=== PATIENT | male | born 1980 | race African-American/Black ===

== ENCOUNTER 2016-09-25 03:10 | Emergency (ER) | payer SELFPAY ==
[~2016-09-25] VITALS: Ht 172.7 cm; Wt 120.2 kg
[2016-09-25 03:10] VITALS: BP 123/76
[2016-09-25] MEDS ORDERED: HYDR-971 PO ×2 (03:49→03:58)
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
== END 2016-09-25 04:05 | disposition home or self-care (01) ==
LOC: ER 03:10
DX: S62.301A Unspecified fracture of second metacarpal bone, left hand, initial encounter for closed fracture (principal); Y04.0XXA Assault by unarmed brawl or fight, initial encounter; Y93.89 Activity, other specified; Y99.8 Other external cause status; Y92.89 Other specified places as the place of occurrence of the external cause
CPT/HCPCS: 29125; 99283-25

== ENCOUNTER 2017-03-30 06:46 | Emergency (ER) | payer OTHER ==
[~2017-03-30] VITALS: Ht 172.7 cm; Wt 120.2 kg
[~2017-03-30 06:46] MED LIST: HYDR-971 PO
[2017-03-30] MEDS ORDERED: IV NORMAL SALINE 1,000ML 1,000 ML IV SCH (07:07)
--- NOTE | 2017-03-30 07:29 | PHYS DOC ---
General Chief Complaint: ABDOMINAL PAIN Stated Complaint: N/V BODY ACHES Time Seen by MD: 06:54 Source: patient Exam Limitations: no limitations Problems: History of Present Illness Initial Comments Patient is a 36-year-old male who comes to the ED complaining of nausea vomiting and myalgias. Patient states for the past 4 days he's had epigastric and generalized abdominal discomfort. He had a loose watery stool yesterday described as diarrhea but states he generally struggles with some constipation. He also had one episode of emesis earlier today no blood in stools or emesis. Abdominal discomfort primarily epigastric but he does say sore all over. ED vitals: 97.7, 66, 16, 135/83, 95% room air Timing/Duration: other (3 days) Modifying Factors: worse with eating, worse with movement, improves with rest Associated Symptoms: nausea/vomiting, other Allergies: Coded Allergies: No Known Drug Allergies (Unverified , 01/23/13) Past Medical History Medical History: no pertinent history Surgical History: noncontributory Social History Smoker: non-smoker, cigarettes Alcohol: none Drugs: none Review of Systems Constitutional: denies chills, denies diaphoresis, denies fever, denies malaise Respiratory: denies cough, denies shortness of breath Cardiovascular: denies chest pain Gastrointestinal: abdominal pain, diarrhea, nausea, vomiting Musculoskeletal: denies back pain, denies joint swelling, denies neck pain Psychiatric/Neurological: denies headache, denies numbness, denies paresthesia Hematologic/Lymphatic: denies blood clots, denies easy bleeding, denies easy bruising Physical Exam General Appearance: WD/WN, no apparent distress Eyes: bilateral eye normal inspection, bilateral eye PERRL, bilateral eye EOMI Ear, Nose, Throat: hearing grossly normal, normal ENT inspection, normal pharynx Neck: non-tender, full range of motion, supple Respiratory: normal breath sounds, no respiratory distress Cardiovascular: normal peripheral pulses, regular rate, rhythm Gastrointestinal: soft (nondistended, negative McBurney there is some epigastric tenderness to palpation as well as exquisitely tender Pedersen sign with guarding no rebound or masses palpated bowel sounds are somewhat diminished ) Rectal: deferred Back: no CVA tenderness, no vertebral tenderness Extremities: normal range of motion, non-tender, normal inspection 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 Acute abdominal series: No acute cardiopulmonary process, nonspecific nonobstructive bowel gas pattern interpreted by me. 0835: I rechecked the patient is pain is resolved with fentanyl nausea is better with Zofran ODT. He continues with exquisite right upper quadrant tenderness and an ultrasound has been ordered his lab evaluation has been unremarkable PATIENT: SVETLANA RICHEY ACCOUNT: [id number] : 1980 LOCATION: ER AGE: 36 SEX: M EXAM STATUS: REG ER ORD. PHYSICIAN: SYDNEY HOLM DO REASON: n/v PROCEDURE: ACUTE ABDOMEN SERIES Acute abdomen series with chest, 03/30/2017: History: Vomiting Gas is present in large and small bowel in a nonspecific pattern. There is a moderate amount of stool in the right colon. No free air seen in the abdomen. There is no evidence of organomegaly. A lower pelvic calcifications on the right is probably a phlebolith. The heart size is normal. The lungs are clear. There is no evidence of pleural fluid. IMPRESSION: No acute abdominal abnormality is detected. DICTATED AND SIGNED BY: OREN GRECO MD DATE: 03/30/17 0837 CC: ISA BROWN MD; SYDNEY HOLM DO ~ PATIENT: SVETLANA RICHEY ACCOUNT: [id number] : 1980 LOCATION: ER AGE: 36 SEX: M EXAM STATUS: REG ER ORD. PHYSICIAN: SYDNEY HOLM DO REASON: epigastric/RUQ pain, +pedersen PROCEDURE: ABDOMEN COMPLETE Examination: Ultrasound abdomen complete HISTORY: History of epigastric pain, right upper quadrant pain COMPARISON: None available FINDINGS: No evidence of gallstones identified. The liver measures 14.5 cm. The echogenicity liver grossly appears unremarkable. The right kidney measures 11.3 cm in length. The left kidney measures 13 cm in length. The pancreas is not well-visualized due to bowel gas. Spleen measures 10.5 cm. The visualized aorta, IVC appear patent. The common bile duct measures 2.8 mm. IMPRESSION: Unremarkable visualized exam. Electronically signed by: Joe Walls MD (03/30/2017 10:25 AM) [facility] DICTATED AND SIGNED BY: JOE WALLS MD DATE: 03/30/17 1024 CC: ISA BROWN MD; SYDNEY HOLM DO ~ Labs unremarkable influenza negative. Urinalysis positive for blood and given the waxing and waning of the patient's symptoms will check CT to rule out stone. PATIENT: SVETLANA RICHEY ACCOUNT: [id number] : 1980 LOCATION: ER AGE: 36 SEX: M EXAM STATUS: REG ER ORD. PHYSICIAN: SYDNEY HOLM DO REASON: flank pain b/l, hematuria PROCEDURE: CT ABDOMEN PELVIS WO CONTRAST PQRS Compliance Statement: One or more of the following individualized dose reduction techniques were utilized for this examination: 1. Automated exposure control 2. Adjustment of the mA and/or kV according to patient size 3. Use of iterative reconstruction technique CT ABDOMEN PELVIS WO CONTRAST Clinical Indication: flank pain, hematuria for 4 days Comparison: None. Technique: Helical CT imaging of the abdomen and pelvis is performed without IV or oral contrast. Findings: Evaluation of solid organs and bowel is limited without oral and IV contrast, decreasing sensitivity for detection of pathology. Lung bases are clear. Cardiac size normal. Liver, gallbladder, spleen, pancreas, adrenal glands, and abdominal aorta caliber are normal. There is at least one punctate nonobstructing left renal calculus. There is no hydronephrosis or perinephric stranding. No ureteral calculus. Stomach unremarkable. Small fat-containing umbilical hernia. No dilated small bowel. The appendix is normal. No colon wall thickening. No abdominal adenopathy or free fluid. Urinary bladder is normal. Prostate size normal. No pelvic free fluid. Transitional lumbosacral anatomy. IMPRESSION: 1. No acute abdominal or pelvic abnormality. No obstructive uropathy. 2. There is at least one punctate nonobstructing left renal calculus. Electronically signed by: Vimal Holly MD (03/30/2017 11:10 AM) [id number] DICTATED AND SIGNED BY: VIMAL HOLLY MD DATE: 03/30/17 1101 CC: ISA BROWN MD; SYDNEY HOLM DO ~ I discussed findings with the patient and his significant other extensively. No acute emergent process is noted. The patient does remain with intermittent discomfort and nausea no vomiting while here in the emergency department. I discussed dietary modifications, oral hydration and work restriction. I discussed [id number] prescription medications. Discussed signs and symptoms to monitor as well as indications for urgent return to the department. There questions were answered is advised to stop smoking expressed agreement and understanding with the treatment plan. Departure Time of Disposition: 11:15 Disposition: 01 HOME, SELF-CARE Diagnosis: gastroenteritis Condition: GOOD Patient Instructions: Abdominal Pain (Nonspecific), Viral Gastroenteritis, Easy -to-Read Additional Instructions: As discussed no acute emergent process noted after extensive evaluation in the emergency department. Off work today. Clear liquids today, advance diet slowly tomorrow as tolerated. No driving or operating machinery while sedated with medications. Stop smoking, seek medical assistance if necessary. Impression: Zofran ODT, dicyclomine Follow-up with your doctor in 3-5 days if no improvement. Return to ED with new or changing symptoms. Departure Disposition: HOME, SELF-CARE Diagnosis: gastroenteritis Condition: GOOD Patient Instructions: Abdominal Pain (Nonspecific), Viral Gastroenteritis, Easy -to-Read Additional Instructions: As discussed no acute emergent process noted after extensive evaluation in the emergency department. Off work today. Clear liquids today, advance diet slowly tomorrow as tolerated. No driving or operating machinery while sedated with medications. Stop smoking, seek medical assistance if necessary. Impression: Zofran ODT, dicyclomine Follow-up with your doctor in 3-5 days if no improvement. Return to ED with new or changing symptoms. SYDNEY HOLM DO Mar 30, 2017 07:29
[2017-03-30 07:35] LABS: BASO % 0 % (0-3); EOS # 0.2 x10^3/uL (0.0-0.7); EOS % 2 % (0-3); HEMATOCRIT 44.8 % (39.0-53.0); HEMOGLOBIN 15.4 g/dL (13.0-17.5); LYMPH # 1.9 x10^3/uL (1.0-4.8); LYMPH % 16 % (24-48); MEAN CORPUSCULAR HEMOGLOBIN 30 pg (25-35); MEAN CORPUSCULAR HGB CONC 34 g/dL (31-37); MEAN CORPUSCULAR VOLUME 87 fL (79-100); MONO % 9 % (0-9); NEUT # 8.6 x10^3uL (1.8-7.7); NEUT % 73 % (31-73); PLATELET COUNT 273 x10^3/uL (140-400); RED BLOOD COUNT 5.13 x10^6/uL (4.30-5.70); RED CELL DISTRIBUTION WIDTH 13.2 % (11.5-14.5); WHITE BLOOD COUNT 11.8 x10^3/uL (4.0-11.0)
[2017-03-30] MEDS ORDERED: KETOROLAC 30 MG/ML VIAL. IV ONE (07:45)
[2017-03-30] MEDS ORDERED: ONDANSETRON PF 4 MG/2 ML VIAL. IV ONE (07:45)
[2017-03-30 07:48] LABS: ALBUMIN 3.6 g/dL (3.4-5.0); ALBUMIN/GLOBULIN RATIO 0.9 (1.0-1.7); CALCIUM 8.9 mg/dL (8.5-10.1); GFR 102.9; POTASSIUM 3.9 mmol/L (3.5-5.1); TOTAL BILIRUBIN 0.4 mg/dL (0.2-1.0); TOTAL PROTEIN 7.4 g/dL (6.4-8.2)
[2017-03-30 07:50] LABS: INFLUENZA A PATIENT NEGATIVE (NEGATIVE); INFLUENZA B PATIENT NEGATIVE (NEGATIVE)
[2017-03-30 07:55] LABS: BACTERIA,URINE 0 /HPF (0-FEW); BILIRUBIN,URINE NEG (NEG); CLARITY,URINE HAZY; COLOR,URINE AMBER; GLUCOSE,URINE NEG (NEG); NITRITE,URINE NEG (NEG); SQUAMOUS EPITHELIAL CELL,UR OCC /LPF; UROBILINOGEN,URINE 0.2 mg/dL (0.2 mg/dL); WBC,URINE 0 /HPF (0-4)
--- NOTE | 2017-03-30 08:40 | RAD ---
Acute abdomen series with chest, 03/30/2017: History: Vomiting Gas is present in large and small bowel in a nonspecific pattern. There is a moderate amount of stool in the right colon. No free air seen in the abdomen. There is no evidence of organomegaly. A lower pelvic calcifications on the right is probably a phlebolith. The heart size is normal. The lungs are clear. There is no evidence of pleural fluid. IMPRESSION: No acute abdominal abnormality is detected.
[2017-03-30 10:11] VITALS: BP 129/96
--- NOTE | 2017-03-30 10:29 | RAD ---
Examination: Ultrasound abdomen complete HISTORY: History of epigastric pain, right upper quadrant pain COMPARISON: None available FINDINGS: No evidence of gallstones identified. The liver measures 14.5 cm. The echogenicity liver grossly appears unremarkable. The right kidney measures 11.3 cm in length. The left kidney measures 13 cm in length. The pancreas is not well-visualized due to bowel gas. Spleen measures 10.5 cm. The visualized aorta, IVC appear patent. The common bile duct measures 2.8 mm. IMPRESSION: Unremarkable visualized exam. Electronically signed by: Joe Walls MD (03/30/2017 10:25 AM) [facility]
--- NOTE | 2017-03-30 11:13 | RAD ---
PQRS Compliance Statement: One or more of the following individualized dose reduction techniques were utilized for this examination: 1. Automated exposure control 2. Adjustment of the mA and/or kV according to patient size 3. Use of iterative reconstruction technique CT ABDOMEN PELVIS WO CONTRAST Clinical Indication: flank pain, hematuria for 4 days Comparison: None. Technique: Helical CT imaging of the abdomen and pelvis is performed without IV or oral contrast. Findings: Evaluation of solid organs and bowel is limited without oral and IV contrast, decreasing sensitivity for detection of pathology. Lung bases are clear. Cardiac size normal. Liver, gallbladder, spleen, pancreas, adrenal glands, and abdominal aorta caliber are normal. There is at least one punctate nonobstructing left renal calculus. There is no hydronephrosis or perinephric stranding. No ureteral calculus. Stomach unremarkable. Small fat-containing umbilical hernia. No dilated small bowel. The appendix is normal. No colon wall thickening. No abdominal adenopathy or free fluid. Urinary bladder is normal. Prostate size normal. No pelvic free fluid. Transitional lumbosacral anatomy. IMPRESSION: 1. No acute abdominal or pelvic abnormality. No obstructive uropathy. 2. There is at least one punctate nonobstructing left renal calculus. Electronically signed by: Vimal Holly MD (03/30/2017 11:10 AM) [id number]
[2017-03-30] MEDS ORDERED: DICY20TA3 PO (11:18)
[2017-03-30] MEDS ORDERED: ONDA4TAB10 PO (11:18)
--- NOTE | 2017-03-30 11:59 | EKG ---
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
== END 2017-03-30 11:30 | disposition home or self-care (01) ==
LOC: ER 06:46
DX: K52.9 Noninfective gastroenteritis and colitis, unspecified (principal); F17.210 Nicotine dependence, cigarettes, uncomplicated
CPT/HCPCS: 36415; 74022; 74176; 76700; 80053; 81001; 82550; 83690; 84484; 85025; 87804; 93005; 96361; 96374; 96375; 96376; 99285; J1885; J2405; J3010; J7030

== ENCOUNTER 2019-03-27 18:04 | Emergency (ER) | payer SELFPAY ==
[~2019-03-27] VITALS: Ht 172.7 cm; Wt 115.3 kg
[~2019-03-27 18:04] MED LIST changes: +DICY20TA3 PO; +HYDR-3165 PO; -HYDR-971 PO; +ONDA4TAB10 PO
--- NOTE | 2019-03-27 18:07 | PHYS DOC ---
Past History Past Medical History: No Pertinent History, Constipation, GERD Past Surgical History: No Surgical History Past Surgical History Circumcision Smoking: Cigarettes Alcohol Use: None Drug Use: None Adult General Chief Complaint Chief Complaint: ABDOMINAL PAIN... "I just started puking... I did have some very hard stool balls earlier this morning... pain is more up here in center.. and feels like acid going up in my throat when I am vomiting.. some pain here on Lt. area upper abdome... " HPI HPI Patient is a 38 year old male who presents with above hx and complaints of nausea, vomiting, reflux, and constipation. Patient denies any intake bad food. Did eat some cereal for breakfast. No history of travel. No history immunosuppression. No history of specific ill contacts. No history of gallbladder disease or kidney stone. No specific history of family history of colitis or Crohn's and or gallbladder disease. Pt. did not get flu vaccination this year. Review of Systems Review of Systems Constitutional: Denies fever or chills [] Eyes: Denies change in visual acuity, redness, or eye pain [] HENT: Denies nasal congestion or sore throat [] Respiratory: Denies cough or shortness of breath [] Cardiovascular: No additional information not addressed in HPI [] GI: Plaints of epigastric and generalized abdominal pain, nausea, vomiting, and constipation. Patient denies any history of bloody stools or diarrhea [] : Denies dysuria or hematuria [] Musculoskeletal: Denies back pain or joint pain [] Integument: Denies rash or skin lesions [] Neurologic: Denies headache, focal weakness or sensory changes [] Endocrine: Denies polyuria or polydipsia [] All other systems were reviewed and found to be within normal limits, except as documented in this note. Family History Family History Noncontributory Current Medications Current Medications See nursing for home meds Allergies Allergies Allergies Coded Allergies Type Severity Reaction Last Updated Verified No Known Drug Allergies 01/23/13 No Physical Exam Physical Exam Constitutional: Moderate acute distress, non-toxic appearance. [] HENT: Normocephalic, atraumatic, bilateral external ears normal, oropharynx moist, no oral exudates, nose normal. [] Eyes: PERRLA, EOMI, conjunctiva normal, no discharge. [] Neck: Normal range of motion, no tenderness, supple, no stridor. [] Cardiovascular: Bradycardia Heart rate regular rhythm, no murmur [] Lungs & Thorax: Bilateral breath sounds equal apex scattered wheezes on auscultation [] Abdomen: Bowel sounds hyperactive, soft, epigastric tenderness, after upper quadrant tenderness, distended., no masses, no pulsatile masses. [] Circumcised male testicles nontender. Rebound to epigastric area Skin: Warm, dry, no erythema, no rash. [] Back: No tenderness, no CVA tenderness. [] Extremities: No tenderness, no cyanosis, no clubbing, ROM intact, no edema. [] No psoas sign Neurologic: Alert and oriented X 3, normal motor function, normal sensory function, no focal deficits noted. [] Psychologic: Affect anxious, judgement normal, mood normal. [] EKG EKG My interpretation EKG shows a sinus rhythm at 61 bpm. No findings acute STEMI of contralateral changes[] Radiology/Procedures Radiology/Procedures [][place] [address] IMAGING REPORT Signed PATIENT: SVETLANA RICHEYACCOUNT: [id number] : 1980 LOCATION: ER AGE: 38 SEX: M EXAM STATUS: REG ER ORD. PHYSICIAN: CATHRYN GOODRICH MD REASON: pain PROCEDURE: ABDOMEN SUPINE & UPRIGHT ABDOMEN SUPINE UPRIGHT, CHEST PA LATERAL INDICATION: Abdominal pain, nausea and vomiting. COMPARISON STUDY: None. FINDINGS: Lungs: Normal lung volume. No pulmonary mass or consolidation. The tracheobronchial tree and hilar structures are normal. Pleura: No pleural effusion or pneumothorax. Heart and Mediastinum: The cardiomediastinal silhouette is normal. The great vessels of the thorax are normal. Abdomen: There are a couple of mildly dilated loops of small bowel. No free air. Large colonic stool burden. Bones and Soft Tissues: The bones and soft tissues are within normal limits. IMPRESSION: 1. Couple of mildly dilated loops of small bowel. Large colonic stool burden. 2. No consolidation. Electronically signed by: Sydney Steve MD (03/27/2019 7:09 PM) [facility] DICTATED AND SIGNED BY: SYDNEY STEVE MD DATE: 03/27/191908 CC: CATHRYN GOODRICH MD; ISA BROWN MD ~ [place] [address] IMAGING REPORT Signed PATIENT: SVETLANA RICHEYACCOUNT: [id number] : 1980 LOCATION: ER AGE: 38 SEX: M EXAM STATUS: REG ER ORD. PHYSICIAN: CATHRYN GOODRICH MD REASON: pain, N/V, X 1 DAY PROCEDURE: CHEST PA & LATERAL ABDOMEN SUPINE UPRIGHT, CHEST PA LATERAL INDICATION: Abdominal pain, nausea and vomiting. COMPARISON STUDY: None. FINDINGS: Lungs: Normal lung volume. No pulmonary mass or consolidation. The tracheobronchial tree and hilar structures are normal. Pleura: No pleural effusion or pneumothorax. Heart and Mediastinum: The cardiomediastinal silhouette is normal. The great vessels of the thorax are normal. Abdomen: There are a couple of mildly dilated loops of small bowel. No free air. Large colonic stool burden. Bones and Soft Tissues: The bones and soft tissues are within normal limits. IMPRESSION: 1. Couple of mildly dilated loops of small bowel. Large colonic stool burden. 2. No consolidation. Electronically signed by: Sydney Steve MD (03/27/2019 7:09 PM) [facility] DICTATED AND SIGNED BY: SYDNEY STEVE MD DATE: 03/27/191908 CC: CATHRYN GOODRICH MD; ISA BROWN MD ~ Course & Med Decision Making Course & Med Decision Making Pertinent Labs and Imaging studies reviewed. (See chart for details) Patient refused to give urine for his workup. Patient at approximately 1945 hrs. stated he felt better and demanded discharge. Patient declined to wait even long enough to get formal discharge instructions. Patient was informed earlier he needs follow-up primary care and stay on a clear fluid diet for the next 48 hours. Take Tylenol for pain. Takes Zantac 150 twice a day. Recommended possible EGD and colonoscopy. Patient encouraged to stop smoking. Pt. may be exhibiting narcotic seeking behavior, as soon as he received morphine he demanded discharge. Pt. did not even stay long enough to get Zantac RX. Pt. ambulatory without problem. Impression- 1. Abdomen pain 2. Nausea and vomiting 3. Constipation 4. Mild leukocytosis 16.9 with elevated monocytes 12.4 5. Possible narcotic seeking behavior. 6. Tobacco Use [] Dragon Disclaimer Dragon Disclaimer This electronic medical record was generated, in whole or in part, using a voice recognition dictation system. Departure Departure: Disposition: 01 HOME/RESIDENCE PRIOR TO ADM Condition: STABLE Referrals: ISA BROWN MD (PCP) Scripts Ranitidine Hcl (ZANTAC) 150 Mg Tablet 150 MG PO BID for gastritis for 30 Days, #60 TAB Prov: CATHRYN GOODRICH MD 03/27/19 [place] Disclaimer This chart was dictated in whole or in part using Voice Recognition software in a busy, high-work load, and often noisy Emergency Department environment. It may contain unintended and wholly unrecognized errors or omissions. Dragon Disclaimer This chart was dictated in whole or in part using Voice Recognition software in a busy, high-work load, and often noisy Emergency Department environment. It may contain unintended and wholly unrecognized errors or omissions. CATHRYN GOODRICH MD Mar 27, 2019 18:07
[2019-03-27] MEDS ORDERED: IV RINGERS SOLUTION,LACTATED 1,000 ML IV SCH (18:13)
[2019-03-27] MEDS ORDERED: KETOROLAC 30 MG/ML VIAL. IVP ONE (18:15)
[2019-03-27] MEDS ORDERED: FAMOTIDINE 20 MG/2 ML VIAL IVP ONE (18:15)
[2019-03-27] MEDS ORDERED: ONDANSETRON PF 4 MG/2 ML VIAL. IVP ONE ×2 (18:15→18:45)
[2019-03-27] MEDS ORDERED: ONDANSETRON ODT 4 MG TAB.RAPDIS ONE (18:15)
[2019-03-27 18:33] LABS: BASO # 0.1 x10^3/uL (0.0-0.2); BASO % 0 % (0-3); EOS # 0.1 x10^3/uL (0.0-0.7); EOS % 1 % (0-3); HEMATOCRIT 45.5 % (39.0-53.0); HEMOGLOBIN 14.9 g/dL (13.0-17.5); LYMPH # 2.3 x10^3/uL (1.0-4.8); LYMPH % 14 % (24-48); MEAN CORPUSCULAR HEMOGLOBIN 30 pg (25-35); MEAN CORPUSCULAR HGB CONC 33 g/dL (31-37); MEAN CORPUSCULAR VOLUME 90 fL (79-100); MONO % 12 % (0-9); NEUT # 12.4 x10^3uL (1.8-7.7); NEUT % 73 % (31-73); PLATELET COUNT 266 x10^3/uL (140-400); RED BLOOD COUNT 5.04 x10^6/uL (4.30-5.70); RED CELL DISTRIBUTION WIDTH 12.9 % (11.5-14.5); WHITE BLOOD COUNT 16.9 x10^3/uL (4.0-11.0)
[2019-03-27 18:43] LABS: CALCIUM 8.9 mg/dL (8.5-10.1); CREATININE 0.8 mg/dL (0.7-1.3); GFR 131.6; POTASSIUM 3.6 mmol/L (3.5-5.1)
[2019-03-27] MEDS ORDERED: ONDANSETRON ODT 4 MG TAB.RAPDIS PO ONE ×2 (18:45)
[2019-03-27] MEDS ORDERED: MAGNESIUM HYDROXIDE 2,400 MG/30 ML ORAL.SUSP. PO ONE (18:45)
[2019-03-27 18:56] LABS: ALBUMIN 3.9 g/dL (3.4-5.0); DIRECT BILIRUBIN 0.1 mg/dL (0.0-0.2); MAGNESIUM 2.1 mg/dL (1.8-2.4); TOTAL BILIRUBIN 0.5 mg/dL (0.2-1.0); TOTAL PROTEIN 7.5 g/dL (6.4-8.2)
[2019-03-27 19:12] VITALS: BP 145/84
--- NOTE | 2019-03-27 19:12 | RAD ---
ABDOMEN SUPINE UPRIGHT, CHEST PA LATERAL INDICATION: Abdominal pain, nausea and vomiting. COMPARISON STUDY: None. FINDINGS: Lungs: Normal lung volume. No pulmonary mass or consolidation. The tracheobronchial tree and hilar structures are normal. Pleura: No pleural effusion or pneumothorax. Heart and Mediastinum: The cardiomediastinal silhouette is normal. The great vessels of the thorax are normal. Abdomen: There are a couple of mildly dilated loops of small bowel. No free air. Large colonic stool burden. Bones and Soft Tissues: The bones and soft tissues are within normal limits. IMPRESSION: 1. Couple of mildly dilated loops of small bowel. Large colonic stool burden. 2. No consolidation. Electronically signed by: Geremias Steve MD (03/27/2019 7:09 PM) [facility]
[2019-03-27] MEDS ORDERED: MORPHINE SULFATE 10 MG/ML SYRINGE. SQ ONE (19:15)
[2019-03-27] MEDS ORDERED: IV RINGERS SOLUTION,LACTATED 1,000 ML IV ONE (19:15)
[2019-03-27] MEDS ORDERED: RANI-376 PO (19:53)
[2019-03-27] MEDS ORDERED: MAGNESIUM CITRATE 296 ML SOLUTION. PO ONE (20:00)
[2019-03-27 20:02] LABS: % BASOS 1 % (0-3); % LYMPHS 16 % (24-48); % MONOS 10 % (0-10); % SEGS 73 % (35-66)
[2019-03-27 20:04] LABS: ANISOCYTOSIS SLIGHT; PLT ESTIMATE ADEQUATE (ADEQUATE)
--- NOTE | 2019-03-28 06:36 | EKG ---
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
== END 2019-03-27 19:50 | disposition home or self-care (01) ==
LOC: ER 18:04
DX: K59.00 Constipation, unspecified (principal); R11.2 Nausea with vomiting, unspecified; R10.84 Generalized abdominal pain; R10.13 Epigastric pain; D72.829 Elevated white blood cell count, unspecified; F17.210 Nicotine dependence, cigarettes, uncomplicated; K21.9 Gastro-esophageal reflux disease without esophagitis; Z98.890 Other specified postprocedural states
CPT/HCPCS: 36415; 71046; 74019; 80048; 80076; 82150; 82550; 83690; 83735; 83880; 84443; 84484; 85007; 85025; 85379; 85610; 85730; 86705; 86709; 86803; 87340; 93005; 96361; 96374; 96375; 99285; G0480; J1885; J2405; J3490; J7120; Q0162

== ENCOUNTER 2020-09-08 02:33 | Emergency (ER) | payer SELFPAY ==
[~2020-09-08] VITALS: Ht 172.7 cm; Wt 115.3 kg
[~2020-09-08 02:33] MED LIST changes: +RANI-376 PO
--- NOTE | 2020-09-08 03:01 | PHYS DOC ---
Past History Past Medical History: No Pertinent History, Constipation, GERD Past Surgical History: No Surgical History Smoking: Cigarettes Alcohol Use: None Drug Use: None Adult General Chief Complaint Chief Complaint: GENERALIZED BODY ACHES HPI HPI Patient is a 40-year-old male, otherwise healthy who presents with a chief complaint of several days of nausea and vomiting that were nonbloody nonbilious. States he has been able to drink some fluids but has had a decreased appetite and only able to eat light things such as crackers and soup. Denies any recent traumas, travels, illnesses, fevers, chest pain, shortness of breath, abdominal pain, dysuria, hematuria, diarrhea or blood in the stool. States that his children did have some similar symptoms about a week ago before they left on vacation and are back now and feel normal. Review of Systems Review of Systems Review of systems otherwise unremarkable except noted in HPI Current Medications Current Medications Current Medications Medications (Trade) Dose Ordered Sig/[place] Start Time Stop Time Status Last Admin Dose Admin Ondansetron HCl (Zofran Odt) 4 mg 1X ONCE 09/08/20 03:30 09/08/20 03:31 Allergies Allergies Allergies Coded Allergies Type Severity Reaction Last Updated Verified No Known Drug Allergies 01/23/13 No Physical Exam Physical Exam Constitutional: Well developed, well nourished, no acute distress, non-toxic appearance. [] HENT: Normocephalic, atraumatic, bilateral external ears normal, oropharynx moist, no oral exudates, nose normal. [] Eyes: conjunctiva normal, no discharge. [] Neck: Normal range of motion, no tenderness, supple, no stridor. [] Cardiovascular:Heart rate regular rhythm, no murmur [] Lungs & Thorax: Bilateral breath sounds clear to auscultation [] Abdomen: soft, no tenderness, no masses, no pulsatile masses. [] Skin: Warm, dry, no erythema, no rash. [] Back: no CVA tenderness. [] Extremities: No tenderness, no cyanosis, no clubbing, ROM intact, no edema. [] Neurologic: Alert and oriented X 3, no focal deficits noted. [] Psychologic: Affect normal, judgement normal, mood normal. [] EKG EKG [] Radiology/Procedures Radiology/Procedures [] Heart Score C/O Chest Pain: No Risk Factors: Risk Factors: DM, Current or recent (<one month) smoker, HTN, HLP, family history of CAD, obesity. Risk Scores: Risk Factors: DM, Current or recent (<one month) smoker, HTN, HLP, family history of CAD, obesity. Course & Med Decision Making Course & Med Decision Making Patient is a 40-year-old male who presents with several days of nonbloody nonbilious emesis Vital signs not concerning. Physical exam noted above. Patient given Zofran. Laboratory analysis not concerning. On reassessment patient stated he was feeling better and was ready to discharge ho Thursday with his primary care physician. Patient p.o. challenge with Gatorade successfully. Discussed all findings with patient. Advised on symptom management at home. Advised to follow-up with primary care physician on Thursday. Gave strict return precautions to the ED. Patient grateful, verbalized understanding and agreed with plan of discharge. [] Dragon Disclaimer Dragon Disclaimer This electronic medical record was generated, in whole or in part, using a voice recognition dictation system. Departure Departure: Impression: Primary Impression: Nausea & vomiting Disposition: HOME / SELF CARE / HOMELESS Condition: GOOD Referrals: PCP,NO (PCP) HELENA QIU MD Patient Instructions: Nausea and Vomiting Additional Instructions: Thank you for coming into the emergency department tonight and allowing us to take care of you. Please read all the attached information very carefully. Please take your nausea medicine as discussed and prescribed. Please be sure to drink plenty of fluids and over the next couple of days EKG consistent light diet as discussed. Please call your primary care physician first thing in the morning to update on your ED visit and set up a follow-up as soon as you can. Please come back to the ED with new or concerning symptoms as discussed. Scripts Ondansetron Hcl (ZOFRAN) 4 Mg Tablet 1 TAB PO TID PRN for NAUSEA for 5 Days, #15 TAB 2 Refills Prov: IBAN UMANZOR MD 09/08/20 IBAN UMANZOR MD Sep 08, 2020 03:01
[2020-09-08 03:18] LABS: BASO % 1 % (0-3); EOS % 0 % (0-3); HEMATOCRIT 49.9 % (39.0-53.0); LYMPH # 1.7 x10^3/uL (1.0-4.8); LYMPH % 23 % (24-48); MEAN CORPUSCULAR HEMOGLOBIN 31 pg (25-35); MEAN CORPUSCULAR HGB CONC 34 g/dL (31-37); MEAN CORPUSCULAR VOLUME 90 fL (79-100); MONO # 1.3 x10^3/uL (0.0-1.1); MONO % 17 % (0-9); NEUT # 4.6 x10^3uL (1.8-7.7); NEUT % 60 % (31-73); PLATELET COUNT 186 x10^3/uL (140-400); RED BLOOD COUNT 5.57 x10^6/uL (4.30-5.70); WHITE BLOOD COUNT 7.7 x10^3/uL (4.0-11.0)
[2020-09-08 03:28] LABS: CALCIUM 8.2 mg/dL (8.5-10.1); GFR 100.7; POTASSIUM 3.7 mmol/L (3.5-5.1)
[2020-09-08] MEDS ORDERED: ONDANSETRON ODT 4 MG TAB.RAPDIS PO ONE (03:30)
[2020-09-08] MEDS ORDERED: ONDA4TAB7 PO (03:36)
[2020-09-08 03:44] VITALS: BP 112/68
== END 2020-09-08 03:55 | disposition home or self-care (01) ==
LOC: ER 02:33
DX: R11.2 Nausea with vomiting, unspecified (principal); R63.0 Anorexia; K21.9 Gastro-esophageal reflux disease without esophagitis; F17.210 Nicotine dependence, cigarettes, uncomplicated
CPT/HCPCS: 36415; 80048; 85025; 99283; Q0162

== ENCOUNTER 2020-12-25 05:42 | Emergency (ER) | payer SELFPAY ==
[~2020-12-25] VITALS: Ht 172.7 cm; Wt 105.4 kg
[~2020-12-25 05:42] MED LIST changes: +DICY20TA PO; -DICY20TA3 PO; +ONDA4TAB7 PO
--- NOTE | 2020-12-25 05:44 | PHYS DOC ---
Past History Past Medical History: No Pertinent History, Constipation, GERD (CATHRYN GOODRICH MD) Past Surgical History: No Surgical History (CATHRYN GOODRICH MD) Smoking: Cigarettes Alcohol Use: None Drug Use: None (CATHRYN GOODRICH MD) General Adult HPI: HPI: ".. Just got released from [facility] on [address].. a week ago I was admitted there for perforated gastric ulcer and abscess formation.... I was hospitalized for over a week after the surgery to repair the ulcer and remove a abscess in my abdomen... I have been having pain for a while.. I tried to call the phone number for follow-up but no one answered tonight... So I came here to get checked out.. 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 Pt. has multiple complaints. Patient localizes pain to epigastric area. Patient post surgery wounds appear to be healing well. Some rebound pain to epigastric area. Patient states he was healthy prior to to the perforated ulcer. No history of recent trauma.. No specific ill contacts. Is up-to-date with vaccinations. No recent travel overseas. No intake of bad food. No history immunosuppression. Pt. normally follows with Dr. Meredith Vu at [place]. (CATHRYN GOODRICH MD) Review of Systems: Review of Systems: Constitutional: Denies fever or chills Eyes: Denies change in visual acuity HENT: Denies nasal congestion or sore throat Respiratory: Denies cough or shortness of breath Cardiovascular: Denies chest pain or edema GI: Denies abdominal pain, nausea, vomiting, bloody stools or diarrhea : Denies dysuria Musculoskeletal: Denies back pain or joint pain Integument: Denies rash Neurologic: Denies headache, focal weakness or sensory changes Endocrine: Denies polyuria or polydipsia Lymphatic: Denies swollen glands Psychiatric: Denies depression or anxiety (CATHRYN GOODRICH MD) Family History: Family History: Noncontributory to presentation (CATHRYN GOODRICH MD) Current Medications: Current Meds: See nursing for home meds (CATHRYN GOODRICH MD) Allergies: Allergies: Allergies Coded Allergies Type Severity Reaction Last Updated Verified No Known Drug Allergies 01/23/13 No (CATHRYN GOODRICH MD) Physical Exam: PE: Constitutional: Well developed, well nourished, no acute distress, non-toxic appearance. [] HENT: Normocephalic, atraumatic, bilateral external ears normal, oropharynx moist, no oral exudates, nose normal. Dark circles under eyes Eyes: PERRLA, EOMI, conjunctiva normal, no discharge. [] Neck: Normal range of motion, no tenderness, supple, no stridor. [] Cardiovascular:Heart rate regular rhythm, no murmur. Tachycardia on monitor Lungs & Thorax: Bilateral breath sounds equal at apex on auscultation [] Abdomen: Bowel sounds decreased, soft, gastric tenderness, no masses, no pulsatile masses. Surgery incision sites appear to be healing well. Skin: Warm, dry, no erythema, no rash. [] Back: No tenderness, no CVA tenderness. [] Extremities: No tenderness, no cyanosis, no clubbing, ROM intact, no edema. Cording in legs Neurologic: Alert and oriented X 3, normal motor function, normal sensory function, no focal deficits noted. [] Psychologic: Affect anxious, judgement normal, mood normal. [] (CATHRYN GOODRICH MD) EKG: EKG: [] (CATHRYN GOODRICH MD) EKG: Sinus rhythm, heart rate 70 bpm, normal axis, no ST elevation or depression, no ectopy. Normal intervals. (MARILU BAUER MD) Radiology/Procedures: Radiology/Procedures: [] (CATHRYN GODORICH MD) Radiology/Procedures: [address] [address] IMAGING REPORT Signed PATIENT: SVETLANA RICHEY LACCOUNT: [id number] : 1980 LOCATION: ER AGE: 40 SEX: M EXAM STATUS: REG ER ORD. PHYSICIAN: CATHRYN GOODRICH MD REASON: recent surgery for perforated ulcer- chest abd. pain, covid + PROCEDURE: CT CHEST ABD PELVIS W/CONTRAST EXAM: CT Chest, Abdomen and Pelvis with IV contrast CLINICAL HISTORY: Reason: recent surgery for perforated ulcer- chest abd. pain, covid + / Spl. Instructions: COVID +, OMNI 300, 75ml / History: COMPARISON: CT abdomen from 03/30/2017 TECHNIQUE: Helical CT of the chest, abdomen and pelvis was performed following the administration of intravenous contrast. Axial, coronal and sagittal reformatted images were generated. ---PQRS compliance statement - One or more of the following individualized dose reduction techniques were utilized for this study: 1. Automated exposure control 2. Adjustment of the mA and/or kV according to patient size 3. Use of iterative reconstruction technique--- FINDINGS: Chest: LUNGS/PLEURA: The pulmonary parenchyma appears within normal limits. Scattered subsegmental atelectasis involving the dependent portion of the right lower lobe, middle lobe and lingula. No focal airspace consolidation. No suspicious pulmonary nodules are visualized. No pleural effusion or focal pleural lesion. MEDIASTINUM: No pathologic mediastinal or hilar adenopathy. The fatty replaced tissue within the anterior mediastinum likely residual thymic tissue. The thoracic aorta and pulmonary arteries are normal in caliber. The heart is normal in size. No pericardial effusion. No detectable calcified coronary atherosclerosis. The visualized thyroid and the esophagus are unremarkable. AXILLA/SOFT TISSUE: No supraclavicular or axillary adenopathy. Regional soft tissues are within normal limits. Bilateral gynecomastia. Abdomen and Pelvis: Liver and biliary system: No focal liver lesion. Gallbladder is decompressed with trace pericolonic fluid and surrounding fat stranding this may be reactive. There is no significant biliary ductal dilation. Spleen: Spleen is unremarkable with adjacent small splenule. Pancreas: Unremarkable Adrenal glands: Hypoattenuating nodularity of the left adrenal gland measuring up to 1.4 cm favoring a lipid poor adenoma. Right adrenal gland is unremarkable. Kidneys: Symmetric nephrograms. No nephrolithiasis or hydroureteronephrosis. There is a trace amount of fluid along the inferior margin of the left kidney which may be from redistribution. Lymph nodes/retroperitoneum: Intraperitoneal and mesenteric adenopathy with no pathologically enlarged lymph nodes. Vessels: Normal in course and caliber. Bowel/Peritoneal cavity: Stomach is decompressed accentuating the wall thickness of the gastric fundus and proximal body. There is suggestion of mucosal thickening of the gastric antrum and pylorus and also the small portion of the duodenum. There is nonspecific irregularity of the mucosal along the greater gastric curvature in the area of the gastric antrum/pylorus which may represent the area of prior surgery. There is a trace focus of gas within the gallbladder fundus and also along the hepatic dome this may be from previous repair or rel ated to a perforated gastroduodenal ulcer. Remaining portions of the small bowel showed no evidence of obstruction or acute inflammatory process. Contrast is seen opacifying multiple segments of large bowel. There is a moderate amount of stool within the cecum/ascending colon and also rectum. There is focal area of pericolonic fat stranding at the hepatic flexure, likely reactive or from prior instrumentation. There is no associated colonic wall thickening. Abdominal wall: Subcutaneous fat stranding with small focus of subcutaneous gas corresponding to areas of recent laparoscopic surgery. Bladder: Bladder is partially decompressed accentuating the wall thickness. No surrounding formation. Bones: No acute or suspicious cysts or malleus. IMPRESSION: 1. No evidence of acute cardiopulmonary process. 2. Findings suggestive of gastroduodenitis with trace amount of pneumoperitoneum. This correlates with recent instrumentation from perforated ulcer repair. Clinical correlation is recommended. Additional findings along the anterior abdominal wall corresponding with recent laparoscopic surgery. There is no evidence of acute complication. Recommend follow-up imaging to ensure resolution. 3. Trace amount of pericholecystic fluid with surrounding fat stranding are likely reactive. No definite findings to suggest acute cholecystitis. May consider further evaluation with right upper quadrant ultrasound. Electronically signed by: Lizabeth Ragland DO (12/25/2020 8:12 AM) [facility] DICTATED AND SIGNED BY: LIZABETH RAGLAND DO DATE: 12/25/20 0738 CC: MARILU BAUER MD; CATHRYN GOODRICH MD; PCP,NO ~MTH0 0 (MARILU BAUER MD) Heart Score: Risk Factors: Risk Factors: DM, Current or recent (<one month) smoker, HTN, HLP, family history of CAD, obesity. Risk Scores: Score 0 - 3: 2.5% MACE over next 6 weeks - Discharge Home Score 4 - 6: 20.3% MACE over next 6 weeks - Admit for Clinical Observation Score 7 - 10: 72.7% MACE over next 6 weeks - Early Invasive Strategies (CATHRYN GOODRICH MD) C/O Chest Pain: Yes HEART Score for Chest Pain: HEART Score for Chest Pain Response (Comments) Value History Slighlty/Non-Suspicious 0 ECG Normal 0 Age < 45 0 Risk Factors 1 or 2 Risk Factors 1 Troponin < Normal Limit 0 Total 1 (MARILU BAUER MD) Course & Med Decision Making: Course & Med Decision Making Pertinent Labs and Imaging studies reviewed. (See chart for details) Pt. endorsed to Kem Nielsen at shift change. Impression: 1. Abdomen Pain 2. Post op Pain [] (CATHRYN GOODRICH MD) Course & Med Decision Making Accepted patient care at shift change. Patient has minimal abdominal pain and no right upper quadrant tenderness. Is more concerned about the swelling in the dorsum of his left hand. There is a puncture wound overlying the pain over his third metatarsal with a small amount of dorsal edema, no cordlike lesions. Patient has full range of motion of his hand. Discussed no concerning of exam findings, likely some thrombophlebitis secondary to an IV in his hand. Patient states he has minimal pain. CT scan is consistent with postsurgical changes without complication. Patient is already taking Augmentin at home. (MARILU BAUER MD) Dragon Disclaimer: Dragon Disclaimer: This electronic medical record was generated, in whole or in part, using a voice recognition dictation system. (CATHRYN GOODRICH MD) Departure Departure: Impression: Primary Impression: Post-op pain Additional Impression: Thrombophlebitis Disposition: HOME / SELF CARE / HOMELESS Condition: STABLE Referrals: PCP,NO (PCP) Patient Instructions: Abdominal Pain (Nonspecific) Additional Instructions: Warm compresses to left hand and elevate CATHRYN GOODRICH MD Dec 25, 2020 05:44 MARILU BAUER MD Dec 25, 2020 08:35
[2020-12-25] MEDS ORDERED: IV RINGERS SOLUTION,LACTATED 1,000 ML IV SCH (06:00)
[2020-12-25] MEDS ORDERED: CONTRAST GIVEN. MC PRN (06:15)
[2020-12-25] MEDS ORDERED: IOHEXOL 300 MG/ML 75 ML VIAL. IV ONE (06:15)
[2020-12-25 06:46] LABS: BASO # 0.1 x10^3/uL (0.0-0.2); BASO % 1 % (0-3); EOS # 0.3 x10^3/uL (0.0-0.7); EOS % 2 % (0-3); HEMATOCRIT 42.9 % (39.0-53.0); HEMOGLOBIN 14.1 g/dL (13.0-17.5); LYMPH # 1.8 x10^3/uL (1.0-4.8); LYMPH % 10 % (24-48); MEAN CORPUSCULAR HEMOGLOBIN 30 pg (25-35); MEAN CORPUSCULAR HGB CONC 33 g/dL (31-37); MEAN CORPUSCULAR VOLUME 91 fL (79-100); MONO # 1.6 x10^3/uL (0.0-1.1); MONO % 9 % (0-9); NEUT # 14.8 x10^3uL (1.8-7.7); NEUT % 79 % (31-73); PLATELET COUNT 360 x10^3/uL (140-400); RED BLOOD COUNT 4.73 x10^6/uL (4.30-5.70); RED CELL DISTRIBUTION WIDTH 13.5 % (11.5-14.5); WHITE BLOOD COUNT 18.7 x10^3/uL (4.0-11.0)
[2020-12-25 06:56] LABS: ANION GAP 13 (6-14); BLOOD UREA NITROGEN 10 mg/dL (8-26); CALCIUM 9.2 mg/dL (8.5-10.1); CARBON DIOXIDE 23 mmol/L (21-32); CHLORIDE 109 mmol/L (98-107); CREATININE 0.9 mg/dL (0.7-1.3); GFR 113.7; GLUCOSE 84 mg/dL (70-99); POTASSIUM 4.6 mmol/L (3.5-5.1); SODIUM 145 mmol/L (136-145)
[2020-12-25 06:58] LABS: BILIRUBIN,URINE NEG (NEG); CLARITY,URINE CLEAR; COLOR,URINE YELLOW; GLUCOSE,URINE NEG (NEG)
[2020-12-25 06:59] LABS: BACTERIA,URINE 0 /HPF (0-FEW); NITRITE,URINE NEG (NEG); SQUAMOUS EPITHELIAL CELL,UR FEW /LPF; UROBILINOGEN,URINE 0.2 mg/dL (0.2 mg/dL); WBC,URINE OCC /HPF (0-4)
[2020-12-25 07:08] LABS: ALBUMIN 3.1 g/dL (3.4-5.0); ALK PHOS 76 U/L (46-116); ALT (SGPT) 179 U/L (16-63); AST (SGOT) 100 U/L (15-37); LIPASE 146 U/L (73-393); MAGNESIUM 2.2 mg/dL (1.8-2.4); TOTAL BILIRUBIN 0.3 mg/dL (0.2-1.0); TOTAL PROTEIN 7.7 g/dL (6.4-8.2)
[2020-12-25 07:10] LABS: DIRECT BILIRUBIN < 0.1 mg/dL (0.0-0.2)
--- NOTE | 2020-12-25 07:41 | EKG ---
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
--- NOTE | 2020-12-25 08:14 | RAD ---
EXAM: CT Chest, Abdomen and Pelvis with IV contrast CLINICAL HISTORY: Reason: recent surgery for perforated ulcer- chest abd. pain, covid + / Spl. Instru ctions: COVID +, OMNI 300, 75ml / History: COMPARISON: CT abdomen from 03/30/2017 TECHNIQUE: Helical CT of the chest, abdomen and pelvis was performed following the administration of intravenous contrast. Axial, coronal and sagittal reformatted images were generated. ---PQRS compliance statement - One or more of the following individualized dose reduction techniques were utilized for this study: 1. Automated exposure control 2. Adjustment of the mA and/or kV according to patient size 3. Use of iterative reconstruction technique--- FINDINGS: Chest: LUNGS/PLEURA: The pulmonary parenchyma appears within normal limits. Scattered subsegmental atelectas is involving the dependent portion of the right lower lobe, middle lobe and lingula. No focal airspac e consolidation. No suspicious pulmonary nodules are visualized. No pleural effusion or focal pleural lesion. MEDIASTINUM: No pathologic mediastinal or hilar adenopathy. The fatty replaced tissue within the ante rior mediastinum likely residual thymic tissue. The thoracic aorta and pulmonary arteries are normal in caliber. The heart is normal in size. No pericardial effusion. No detectable calcified coronary at herosclerosis. The visualized thyroid and the esophagus are unremarkable. AXILLA/SOFT TISSUE: No supraclavicular or axillary adenopathy. Regional soft tissues are within mavis l limits. Bilateral gynecomastia. Abdomen and Pelvis: Liver and biliary system: No focal liver lesion. Gallbladder is decompressed with trace pericolonic fluid and surrounding fat stranding this may be reactive. There is no significant biliary ductal dila tion. Spleen: Spleen is unremarkable with adjacent small splenule. Pancreas: Unremarkable Adrenal glands: Hypoattenuating nodularity of the left adrenal gland measuring up to 1.4 cm favoring a lipid poor adenoma. Right adrenal gland is unremarkable. Kidneys: Symmetric nephrograms. No nephrolithiasis or hydroureteronephrosis. There is a trace amount of fluid along the inferior margin of the left kidney which may be from redistribution. Lymph nodes/retroperitoneum: Intraperitoneal and mesenteric adenopathy with no pathologically enlarge d lymph nodes. Vessels: Normal in course and caliber. Bowel/Peritoneal cavity: Stomach is decompressed accentuating the wall thickness of the gastric fundu s and proximal body. There is suggestion of mucosal thickening of the gastric antrum and pylorus and also the small portion of the duodenum. There is nonspecific irregularity of the mucosal along the gr eater gastric curvature in the area of the gastric antrum/pylorus which may represent the area of xavier or surgery. There is a trace focus of gas within the gallbladder fundus and also along the hepatic do me this may be from previous repair or related to a perforated gastroduodenal ulcer. Remaining portio ns of the small bowel showed no evidence of obstruction or acute inflammatory process. Contrast is se en opacifying multiple segments of large bowel. There is a moderate amount of stool within the cecum/ ascending colon and also rectum. There is focal area of pericolonic fat stranding at the hepatic flex ure, likely reactive or from prior instrumentation. There is no associated colonic wall thickening. Abdominal wall: Subcutaneous fat stranding with small focus of subcutaneous gas corresponding to area s of recent laparoscopic surgery. Bladder: Bladder is partially decompressed accentuating the wall thickness. No surrounding formation. Bones: No acute or suspicious cysts or malleus. IMPRESSION: 1. No evidence of acute cardiopulmonary process. 2. Findings suggestive of gastroduodenitis with trace amount of pneumoperitoneum. This correlates wit h recent instrumentation from perforated ulcer repair. Clinical correlation is recommended. Additiona l findings along the anterior abdominal wall corresponding with recent laparoscopic surgery. There is no evidence of acute complication. Recommend follow-up imaging to ensure resolution. 3. Trace amount of pericholecystic fluid with surrounding fat stranding are likely reactive. No defin ite findings to suggest acute cholecystitis. May consider further evaluation with right upper quadran t ultrasound. Electronically signed by: Sandor Ragland DO (12/25/2020 8:12 AM) [facility]
[2020-12-25 08:43] VITALS: BP 121/73
[2020-12-25 13:55] LABS: % EOS 4 % (0-5); % LYMPHS 17 % (24-48); % MONOS 5 % (0-10); % SEGS 74 % (35-66); PLT ESTIMATE ADEQUATE (ADEQUATE)
== END 2020-12-25 09:00 | disposition home or self-care (01) ==
LOC: ER 05:42
DX: G89.18 Other acute postprocedural pain (principal); I80.9 Phlebitis and thrombophlebitis of unspecified site; R10.13 Epigastric pain; K21.9 Gastro-esophageal reflux disease without esophagitis; F17.210 Nicotine dependence, cigarettes, uncomplicated
CPT/HCPCS: 36415; 71260; 74177; 80048; 80076; 81001; 82550; 83690; 83735; 83880; 84443; 84484; 85007; 85025; 85379; 85610; 85730; 93005; 96360; 96361; 99285; J7120; Q9967